=== PATIENT | male | born 1960 | race Caucasian/White ===

== ENCOUNTER 2018-10-20 01:29 | Emergency (ER) | payer OTHER ==
[~2018-10-20] VITALS: Ht 180.3 cm; Wt 84.8 kg
[2018-10-20 01:33] VITALS: BP 134/78
--- NOTE | 2018-10-20 01:39 | NUR ---
PT PRESENTS TO ED WITH RIGHT THIRD DIGIT PAIN. 01/06 WITH ADL'S. PT STATES HURTING FINGER WHILE LIFTING GROCERIES. VSS. CMS INTACT BILAT UPPER EXTREMITIES. POSITIONED IN BED FOR COMFORT. ER MD AWARE. CONTINUE TO MONITOR.
--- NOTE | 2018-10-20 01:39 | NUR ---
PT TAKEN TO BED 8
--- NOTE | 2018-10-20 03:26 | NUR ---
Dr. Elizalde evaluating patient at bedside.
[2018-10-20] MEDS ORDERED: KETOROLAC 60 MG/2 ML VIAL IM ONE (03:30)
--- NOTE | 2018-10-20 03:40 | NUR ---
pt refused toradol pain medication after medication opened. medication wasted.
[2018-10-20 03:44] VITALS: BP 134/78
--- NOTE | 2018-10-20 03:44 | NUR ---
Patient discharged with v/s stable. Written and verbal after care instructions given and explained. Patient alert, oriented and verbalized understanding of instructions. Ambulatory with steady gait. All questions addressed prior to discharge. ID band removed. Patient advised to follow up with PMD. Rx of [place] and Motrin given. Patient educated on indication of medication including possible reaction and side effects. Opportunity to ask questions provided and answered.
== END 2018-10-20 03:44 | disposition home or self-care (01) ==
LOC: MED 01:29
DX: M79.644 Pain in right finger(s) (principal); F17.200 Nicotine dependence, unspecified, uncomplicated
CPT/HCPCS: 99283; J1885

== ENCOUNTER 2019-04-25 11:03 | Emergency (ER) | payer OTHER ==
[~2019-04-25] VITALS: Ht 180.3 cm; Wt 80.3 kg
[2019-04-25 11:17] VITALS: BP 121/72
--- NOTE | 2019-04-25 11:17 | NUR ---
PATIENT AMBULATED TO BED 6 AT THIS TIME.
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
[2019-04-25 11:59] LABS: BASOPHILS % (AUTO) 0.7 % (0.0-2.0); EOSINOPHILS # (AUTO) 0.1 K/uL (0-0.4); EOSINOPHILS % (AUTO) 1.5 % (0.0-4.0); HEMATOCRIT 39.8 % (36-52); HEMOGLOBIN 13.5 g/dL (12.0-18.0); LYMPHOCYTES # (AUTO) 1.7 K/uL (2.0-11.5); LYMPHOCYTES % (AUTO) 22.7 % (20.5-51.1); MEAN CORPUSCULAR HEMOGLOBIN 27 pg (27-31); MEAN CORPUSCULAR HGB CONC 34 g/dL (33-37); MONOCYTES # (AUTO) 0.7 K/uL (0.8-1.0); MONOCYTES % (AUTO) 9.9 % (1.7-9.3); NEUTROPHILS # (AUTO) 4.9 K/uL (1.8-7.7); NEUTROPHILS % (AUTO) 65.2 % (42.2-75.2); PLATELET COUNT (AUTO) 205 K/uL (140-450); RED BLOOD CELL COUNT(AUTO) 4.91 MIL/uL (4.20-6.10); RED CELL DISTRIBUTION WIDTH 14.3 % (11.6-13.7); WHITE BLOOD COUNT (AUTO) 7.4 K/uL (4.8-10.8)
[2019-04-25 12:56] LABS: SALICYLATE < 2.8 mg/dL (2.8-20.0)
[2019-04-25 13:10] LABS: ALBUMIN 3.7 g/dL (3.4-5.0); ANION GAP 15.2 (8-16); ASPARTATE AMINOTRANSFERASE 26 U/L (15-37); CARBON DIOXIDE 23.6 mmol/L (21-32); CHLORIDE 107 mmol/L (98-107); CREATININE 1.1 mg/dL (0.7-1.3); GFR ARICAN-AMERICAN 89 mL/min (>90); GLUCOSE 100 mg/dL (74-106); POTASSIUM 3.8 mmol/L (3.5-5.1); SODIUM SERUM 142 mmol/L (136-145); TOTAL BILIRUBIN 0.5 mg/dL (0.0-1.0); UREA NITROGEN, BLOOD 13 mg/dL (7-18)
[2019-04-25 13:22] LABS: ACETAMINOPHEN < 0.5 ug/ml (10-30)
[2019-04-25 13:46] LABS: BARBITURATE, URINE NEG. ng/ml (NEG <=200); BENZODIAZEPINE, URINE NEG. ng/mL (NEG <=200); CANNABINOID, URINE NEG. ng/mL (NEG <=50); COCAINE, URINE NEG. ng/mL (NEG <=300); OPIATE, URINE NEG. ng/mL (NEG <=2000); PHENCYCLIDINE SCREEN,URINE NEG. ng/mL (NEG <=25)
--- NOTE | 2019-04-25 14:30 | NUR ---
Patient appears to be resting in bed. Vital Signs within normal limits. Respirations even and unlabored.
--- NOTE | 2019-04-25 14:45 | NUR ---
[employer] OFFICER AT BEDSIDE.
--- NOTE | 2019-04-25 14:54 | NUR ---
PT PLACED ON A 72 HOUR HOLD FOR EVALUATION AND TREATMENT BY [employer] AND [employer]TER Lesley CORRIGAN #[id number] DUE TO SUICIDAL IDEATION.
--- NOTE | 2019-04-25 15:51 | NUR ---
PT NOTED CALM ; RESTING COMFORTABLY IN BED; VSS. 1:1 FACE TO FACE MONITORING. ENVIRONMENTAL CHECKS DONE; ALL POTENTIAL HARMFUL ITEMS REMOVED FROM ROOM.
--- NOTE | 2019-04-25 16:35 | NUR ---
PT SLEEPING; RESPIRATIONS EVEN AND UNLABORED. NO BEHAVIORAL PROBLEMS OBSERVED. 1:1 SUPERVISION AT ALL TIMES. NO BEHAVIORAL PROBLEMS AT THIS TIME.
--- NOTE | 2019-04-25 18:35 | NUR ---
PT LAYING IN BED, RESTING COMFORTABLY.VSS. TOILETING NEEDS ARE BEING MET. ALL NEEDS ATTENDED TO. SAFETY ENVIRONMENTAL CHECKS ARE BEING PERFORMED. 1:1 CLOSE MONITORING AT ALL TIMES.
--- NOTE | 2019-04-25 19:17 | NUR ---
REPORT GIVEN TO KEELY LISA. TRANSFER OF CARE AT THIS TIME.
--- NOTE | 2019-04-25 19:18 | NUR ---
RECEIVED REPORT FROM KEELY ASHLEY. TRANSFER OF CARE AT THIS TIME.
--- NOTE | 2019-04-25 19:45 | NUR ---
PT SITTING UP IN BED EATING DINNER WITH SITTER AT BEDSIDE.
--- NOTE | 2019-04-25 19:52 | NUR ---
Patient to be transferred to [facility] . Is being transferred due to suicidal ideation/continuation of care. Receiving doctor is Dr. Cross. Receiving facility has accepting physician and available space. ER physician has signed transfer form. Patient or responsible libertarian has agreed to transfer and signed form. Patient belongings inventoried and will be sent with patient. Copy of nursing notes, lab reports, EKG, Physicians Orders and X-rays to be sent with patient. Report called to at receiving facility. [facility] ambulance service has been called for transfer. ETA is 30 MINS .
--- NOTE | 2019-04-25 20:14 | NUR ---
[facility] TRANSPORT AT BEDSIDE
--- NOTE | 2019-04-25 20:18 | NUR ---
REPORT GIVEN TO JUSTINE FONTANA. PT TRANSFERED VIA [facility] BLS TRANSPORT TO [facility]. PT AMBULATED FROM BED TO [facility] WITH VSS. PT AWAKE, ALERT, CALM, COOPERATIVE.
[2019-04-25 20:20] VITALS: BP 115/56
--- NOTE | 2019-04-25 20:20 | NUR ---
PT TAKEN BY [facility] TRANSPORT TO [facility]
== END 2019-04-25 20:20 | disposition short-term general hospital (02) ==
LOC: MED 11:03
DX: R45.851 Suicidal ideations (principal); R94.31 Abnormal electrocardiogram [ECG] [EKG]
CPT/HCPCS: 36415; 80053; 80305; 85025; 93005; 99285; G0480; G0482; 99284

== ENCOUNTER 2021-03-10 23:26 | Emergency (ER) | payer OTHER, MEDICAID ==
[~2021-03-10] VITALS: Ht 180.3 cm; Wt 96.2 kg
[2021-03-10 23:31] VITALS: BP 140/90
[2021-03-11 01:37] LABS: BASOPHILS % (AUTO) 0.4 % (0.0-2.0); EOSINOPHILS # (AUTO) 0.2 K/uL (0-0.4); EOSINOPHILS % (AUTO) 2.3 % (0.0-4.0); HEMATOCRIT 40.9 % (36-52); HEMOGLOBIN 13.7 g/dL (12.0-18.0); LYMPHOCYTES % (AUTO) 21.4 % (20.5-51.1); MEAN CORPUSCULAR HEMOGLOBIN 28 pg (27-31); MEAN CORPUSCULAR HGB CONC 34 g/dL (33-37); MEAN CORPUSCULAR VOLUME 82.5 fL (80-94); MONOCYTES # (AUTO) 0.8 K/uL (0.8-1.0); MONOCYTES % (AUTO) 8.5 % (1.7-9.3); NEUTROPHILS # (AUTO) 6.3 K/uL (1.8-7.7); NEUTROPHILS % (AUTO) 67.4 % (42.2-75.2); PLATELET COUNT (AUTO) 215 K/uL (140-450); RED BLOOD CELL COUNT(AUTO) 4.96 MIL/uL (4.20-6.10); RED CELL DISTRIBUTION WIDTH 14.2 % (11.6-13.7); WHITE BLOOD COUNT (AUTO) 9.3 K/uL (4.8-10.8)
[2021-03-11 01:50] LABS: ALBUMIN 3.6 g/dL (3.4-5.0); ANION GAP 16.8 (8-16); ASPARTATE AMINOTRANSFERASE 23 U/L (15-37); CARBON DIOXIDE 23.3 mmol/L (21-32); CHLORIDE 109 mmol/L (98-107); CREATININE 1.3 mg/dL (0.6-1.3); GFR ARICAN-AMERICAN 73 mL/min (>90); GLUCOSE 112 mg/dL (74-106); POTASSIUM 4.1 mmol/L (3.5-5.1); SODIUM SERUM 145 mmol/L (136-145); TOTAL BILIRUBIN 0.4 mg/dL (0.0-1.0); UREA NITROGEN, BLOOD 17 mg/dL (7-18)
[2021-03-11 01:56] LABS: ACETAMINOPHEN < 0.5 ug/ml (10-30); SALICYLATE < 2.8 mg/dL (2.8-20.0)
[2021-03-11 02:22] LABS: BARBITURATE, URINE NEGATIVE ng/ml (NEG <=200); BENZODIAZEPINE, URINE NEGATIVE ng/mL (NEG <=200); CANNABINOID, URINE NEGATIVE ng/mL (NEG <=50); COCAINE, URINE NEGATIVE ng/mL (NEG <=300); OPIATE, URINE NEGATIVE ng/mL (NEG <=2000); PHENCYCLIDINE SCREEN,URINE NEGATIVE ng/mL (NEG <=25)
[2021-03-11] MEDS ORDERED: FLUoxetine 20 MG CAP PO SCH (09:00)
[2021-03-11] MEDS ORDERED: OLANZapine 5 MG ODT PO ONE (09:00)
[2021-03-11 14:21] VITALS: BP 126/76
[2021-03-11] MEDS ORDERED: traZODone 50 MG TAB PO SCH (21:00)
== END 2021-03-11 14:23 ==
LOC: MED 23:26
DX: R45.851 Suicidal ideations (principal); Z20.822 Contact with and (suspected) exposure to COVID-19
CPT/HCPCS: 36415; 80053; 80305; 85025; 87426; 99285; G0480; G0482; U0003